=== PATIENT | female | born 1970 | race Caucasian/White ===

== ENCOUNTER 2017-11-07 11:33 | Inpatient (IN) | payer MEDICAID, OTHER ==
[2017-11-07] MEDS: SOD CHLORIDE 0.9% 500 ML IV (15:59)
[2017-11-07 16:24] LABS: WHITE BLOOD COUNT 7.4 10^3/ul (4.8-10.8)
[2017-11-07 16:24] LABS: ABNORMAL IP MESSAGE 1; HEMATOCRIT 21.9 % (37.0-47.0); MEAN CORPUSCULAR HEMOGLOBIN 18.5 pg (29.0-33.0); MEAN CORPUSCULAR HGB CONC 26.5 g/dl (32.0-37.0); MEAN CORPUSCULAR VOLUME 69.7 fl (82.0-101.0); MEAN PLATELET VOLUME 10.7 fl (7.4-10.4); NUCLEATED RED BLOOD CELLS% 0.4 /100WBC (0.0-0.0); PLATELET COUNT 389 10^3/UL (140-415); RED BLOOD COUNT 3.14 10^6/ul (4.20-5.40); RED CELL DISTRIBUTION WIDTH 18.9 % (11.5-14.5)
[2017-11-07 16:30] LABS: INR 0.96; PARTIAL THROMBOPLASTIN TIME 26.4 Sec (25.0-35.0); PROTIME 12.9 Sec (11.9-14.9)
[2017-11-07 16:36] LABS: ALANINE AMINOTRANSFERASE 18 IU/L (13-69); ALBUMIN 4.2 g/dl (3.3-4.9); ALBUMIN/GLOBULIN RATIO 1.05; ALKALINE PHOSPHATASE 75 IU/L (42-121); ANION GAP 17 (8-16); ASPARTATE AMINO TRANSFERASE 25 IU/L (15-46); BILIRUBIN,INDIRECT 0.2 mg/dl (0-1.1); BILIRUBIN,TOTAL 0.2 mg/dl (0.2-1.3); BLOOD UREA NITROGEN 11 mg/dl (7-20); CALCIUM 8.9 mg/dl (8.4-10.2); CARBON DIOXIDE 23 mmol/L (21-31); CHLORIDE 107 mmol/L (97-110); CREATININE 0.59 mg/dl (0.44-1.00); GLUCOSE 94 mg/dl (70-220); POTASSIUM 3.6 mmol/L (3.5-5.1); SODIUM 143 mmol/L (135-144); TOTAL PROTEIN 8.2 g/dl (6.1-8.1)
[2017-11-07 16:37] LABS: ADD MAN DIFF? YES; HEMOGLOBIN 5.8 g/dl (12.0-16.0); POSITIVE DIFF @See below
[2017-11-07 16:50] LABS: ADD UMIC YES; UR ASCORBIC ACID 40 mg/dL (NEGATIVE); UR BILIRUBIN (Dip) NEGATIVE (NEGATIVE); UR BLOOD (Dip) NEGATIVE (NEGATIVE); UR CLARITY SLIGHTLY CLOUDY (CLEAR); UR COLOR AMBER (YELLOW); UR GLUCOSE (Dip) NEGATIVE (NEGATIVE); UR KETONES (Dip) NEGATIVE (NEGATIVE); UR LEUKOCYTE ESTERASE (Dip) 1+ Leu/ul (NEGATIVE); UR MUCUS FEW /HPF (NONE SEEN); UR NITRITE (Dip) NEGATIVE (NEGATIVE); UR RBC 8 /HPF (0-5); UR SPECIFIC GRAVITY (Dip) 1.011 (1.003-1.030); UR TOTAL PROTEIN (Dip) NEGATIVE (NEGATIVE); UR UROBILINOGEN (Dip) NEGATIVE (NEGATIVE); UR WBC 9 /HPF (0-5)
[2017-11-07 17:07] LABS: ANISOCYTOSIS 3+ (0-0); ERYTHROBLAST% (NRBC) (M) 3 % (0-0); GIANT THROMBO% (M) 8 % (0-0); HYPOCHROMASIA 3+ (0-0); LYMPHOCYTES #M 2.1 10^3/ul (0.8-2.9); LYMPHOCYTES % (M) 29 % (15-51); MICROCYTOSIS 2+ (0-0); MONOCYTE #M 0.6 10^3/ul (0.3-0.9); MONOCYTES % (M) 9 % (0-11); PLATELET ESTIMATE NORMAL; POIKILOCYTOSIS 1+ (0-0); POLYCHROMASIA 3+ (0-0); SEGMENTED NEUTROPHILS (M) % 62 % (39-77); SMUDGE%M 3 % (0-0)
[2017-11-07] MEDS ORDERED: BISACODYL (EC) 5 MG TAB PO (18:00)
[2017-11-07] MEDS ORDERED: ACETAMINOPHEN 325 MG TAB PO (18:00)
[2017-11-07] MEDS ORDERED: MAGNESIUM HYDROXIDE 30ML CUP PO (18:00)
[2017-11-07] MEDS ORDERED: DOCUSATE SODIUM 100 MG CAP PO (18:00)
[2017-11-07] MEDS: NACL 0.9% 3 ML SYG IV (20:29)
[2017-11-07] MEDS: SOD CHLORIDE 0.9% 1,000 ML IV (20:29)
[2017-11-08 06:25] LABS: IMMEDIATE SPIN CROSSMATCH 1 3
[2017-11-08 10:57] LABS: ADD MAN DIFF? NO
[2017-11-08 11:02] LABS: WHITE BLOOD COUNT 6.5 10^3/ul (4.8-10.8)
[2017-11-08 11:02] LABS: BASOPHILS % 0.6 % (0.0-2.0); EOSINOPHILS # 0.1 10^3/ul (0.0-0.5); EOSINOPHILS % 1.1 % (0.0-7.0); HEMATOCRIT 30.8 % (37.0-47.0); HEMOGLOBIN 9.4 g/dl (12.0-16.0); LYMPHOCYTES # 1.4 10^3/ul (0.8-2.9); LYMPHOCYTES % 21.1 % (15.0-51.0); MEAN CORPUSCULAR HEMOGLOBIN 22.8 pg (29.0-33.0); MEAN CORPUSCULAR HGB CONC 30.5 g/dl (32.0-37.0); MEAN CORPUSCULAR VOLUME 74.6 fl (82.0-101.0); MEAN PLATELET VOLUME 10.2 fl (7.4-10.4); MONOCYTE # 0.7 10^3/ul (0.3-0.9); MONOCYTES % 11.2 % (0.0-11.0); NEUTROPHIL # 4.2 10^3/ul (1.6-7.5); NEUTROPHILS % 65.2 % (39.0-77.0); NUCLEATED RED BLOOD CELLS% 0.5 /100WBC (0.0-0.0); PLATELET COUNT 294 10^3/UL (140-415); RED BLOOD COUNT 4.13 10^6/ul (4.20-5.40); RED CELL DISTRIBUTION WIDTH 21.2 % (11.5-14.5)
[2017-11-08 11:27] LABS: ALANINE AMINOTRANSFERASE 22 IU/L (13-69); ALBUMIN 3.5 g/dl (3.3-4.9); ALBUMIN/GLOBULIN RATIO 1.02; ALKALINE PHOSPHATASE 60 IU/L (42-121); ANION GAP 13 (8-16); ASPARTATE AMINO TRANSFERASE 24 IU/L (15-46); BILIRUBIN,INDIRECT 0.9 mg/dl (0-1.1); BILIRUBIN,TOTAL 0.9 mg/dl (0.2-1.3); BLOOD UREA NITROGEN 9 mg/dl (7-20); CALCIUM 8.4 mg/dl (8.4-10.2); CARBON DIOXIDE 24 mmol/L (21-31); CHLORIDE 110 mmol/L (97-110); GLUCOSE 84 mg/dl (70-220); POTASSIUM 3.8 mmol/L (3.5-5.1); SODIUM 143 mmol/L (135-144); TOTAL PROTEIN 6.9 g/dl (6.1-8.1)
[2017-11-08] MEDS: SOD CHLORIDE 0.9% 1,000 ML IV (13:41)
[2017-11-08 14:04] LABS: HEMOGLOBIN 9.4 g/dl (12.0-16.0)
[2017-11-08] MEDS: CIPROFLOXACIN 200 MG/D5W IVPB 100 ML IVPB (17:47)
[2017-11-08 18:49] LABS: HEMATOCRIT 30.1 % (37.0-47.0); HEMOGLOBIN 9.2 g/dl (12.0-16.0)
[2017-11-08 22:23] LABS: HEMOGLOBIN 8.9 g/dl (12.0-16.0)
[2017-11-09 03:04] LABS: HEMATOCRIT 28.1 % (37.0-47.0); HEMOGLOBIN 8.4 g/dl (12.0-16.0)
[2017-11-09] MEDS: SOD CHLORIDE 0.9% 1,000 ML IV ×2 (05:39→08:52)
[2017-11-09 06:50] LABS: ADD MAN DIFF? NO
[2017-11-09 06:59] LABS: WHITE BLOOD COUNT 6.1 10^3/ul (4.8-10.8)
[2017-11-09 06:59] LABS: BASOPHIL # 0.1 10^3/ul (0.0-0.1); BASOPHILS % 0.8 % (0.0-2.0); EOSINOPHILS # 0.2 10^3/ul (0.0-0.5); EOSINOPHILS % 2.6 % (0.0-7.0); HEMATOCRIT 29.4 % (37.0-47.0); HEMOGLOBIN 8.7 g/dl (12.0-16.0); LYMPHOCYTES # 1.7 10^3/ul (0.8-2.9); LYMPHOCYTES % 28.1 % (15.0-51.0); MEAN CORPUSCULAR HEMOGLOBIN 21.9 pg (29.0-33.0); MEAN CORPUSCULAR HGB CONC 29.6 g/dl (32.0-37.0); MEAN CORPUSCULAR VOLUME 73.9 fl (82.0-101.0); MEAN PLATELET VOLUME 10.1 fl (7.4-10.4); MONOCYTE # 0.8 10^3/ul (0.3-0.9); MONOCYTES % 13.5 % (0.0-11.0); NEUTROPHIL # 3.3 10^3/ul (1.6-7.5); NEUTROPHILS % 54.5 % (39.0-77.0); PLATELET COUNT 268 10^3/UL (140-415); RED BLOOD COUNT 3.98 10^6/ul (4.20-5.40); RED CELL DISTRIBUTION WIDTH 21.5 % (11.5-14.5)
[2017-11-09 07:43] LABS: ANION GAP 11 (8-16); BLOOD UREA NITROGEN 11 mg/dl (7-20); CALCIUM 8.3 mg/dl (8.4-10.2); CARBON DIOXIDE 24 mmol/L (21-31); CHLORIDE 112 mmol/L (97-110); CREATININE 0.64 mg/dl (0.44-1.00); GLUCOSE 83 mg/dl (70-220); PHOSPHORUS 4.2 mg/dl (2.5-4.9); SODIUM 143 mmol/L (135-144)
[2017-11-09] MEDS: CIPROFLOXACIN 200 MG/D5W IVPB 100 ML IVPB ×2 (08:52→21:55)
[2017-11-09] MEDS: MEDROXYPROGESTERONE 10 MG TAB PO (16:41)
[2017-11-10 06:22] LABS: ADD MAN DIFF? NO
[2017-11-10 06:30] LABS: WHITE BLOOD COUNT 5.7 10^3/ul (4.8-10.8)
[2017-11-10 06:30] LABS: ABNORMAL IP MESSAGE 1; BASOPHILS % 0.5 % (0.0-2.0); EOSINOPHILS # 0.1 10^3/ul (0.0-0.5); EOSINOPHILS % 2.1 % (0.0-7.0); HEMATOCRIT 29.9 % (37.0-47.0); HEMOGLOBIN 8.9 g/dl (12.0-16.0); LYMPHOCYTES # 1.6 10^3/ul (0.8-2.9); LYMPHOCYTES % 27.6 % (15.0-51.0); MEAN CORPUSCULAR HGB CONC 29.8 g/dl (32.0-37.0); MEAN CORPUSCULAR VOLUME 73.8 fl (82.0-101.0); MEAN PLATELET VOLUME 11.2 fl (7.4-10.4); MONOCYTE # 0.7 10^3/ul (0.3-0.9); NEUTROPHIL # 3.3 10^3/ul (1.6-7.5); NEUTROPHILS % 57.4 % (39.0-77.0); PLATELET COUNT 292 10^3/UL (140-415); RED BLOOD COUNT 4.05 10^6/ul (4.20-5.40); RED CELL DISTRIBUTION WIDTH 22.1 % (11.5-14.5)
[2017-11-10 06:57] LABS: POSITIVE DIFF @See below
[2017-11-10] MEDS ORDERED: HYDROmorphONE 2 MG/ML SYG (07:00)
[2017-11-10] MEDS ORDERED: ONDANSETRON 4 MG INJ (07:00)
[2017-11-10] MEDS ORDERED: METOCLOPRAMIDE 10 MG INJ (07:00)
[2017-11-10 07:14] LABS: ANION GAP 13 (8-16); BLOOD UREA NITROGEN 9 mg/dl (7-20); CALCIUM 8.6 mg/dl (8.4-10.2); CARBON DIOXIDE 24 mmol/L (21-31); CHLORIDE 110 mmol/L (97-110); CREATININE 0.61 mg/dl (0.44-1.00); GLUCOSE 95 mg/dl (70-220); PHOSPHORUS 4.4 mg/dl (2.5-4.9); SODIUM 143 mmol/L (135-144)
[2017-11-10] MEDS: MEDROXYPROGESTERONE 10 MG TAB PO (09:00)
[2017-11-10] MEDS: CIPROFLOXACIN 200 MG/D5W IVPB 100 ML IVPB ×2 (09:08→20:25)
[2017-11-10] MEDS ORDERED: HYDROmorphONE 1 MG/5 ML IV SYRINGE IV ×3 (09:30)
[2017-11-10] MEDS ORDERED: IPRATROPIUM (NEB) 0.5 MG/2.5 ML AMP HHN (09:30)
[2017-11-10] MEDS ORDERED: MEPERIDINE 25 MG INJ IV (09:30)
[2017-11-10] MEDS ORDERED: DIPHENHYDRAMINE 50 MG INJ IV (09:30)
[2017-11-10] MEDS ORDERED: ONDANSETRON 4 MG INJ IV (09:30)
[2017-11-10] MEDS ORDERED: FENTAnyl 50 MCG/ML VIAL IV ×2 (09:30)
[2017-11-10] MEDS ORDERED: FENTAnyl 50 MCG/ML VIAL (13:26)
[2017-11-10] MEDS ORDERED: PROPOFOL 20 ML (13:27)
[2017-11-10] MEDS ORDERED: LIDOCAINE 2% (SDV) 5 ML INJ (13:27)
[2017-11-10] MEDS ORDERED: MIDAZOLAM 1 MG/ML 2 ML INJ (13:27)
[2017-11-10] MEDS ORDERED: DEXAMETHASONE 4 MG/ML 1 ML INJ (13:28)
[2017-11-10] MEDS ORDERED: CEFAZOLIN 1 GM INJ (15:39)
[2017-11-10] MEDS: ONDANSETRON 4 MG INJ IV (17:50)
[2017-11-11] MEDS: CIPROFLOXACIN 200 MG/D5W IVPB 100 ML IVPB (08:35)
[2017-11-11] MEDS: MEDROXYPROGESTERONE 10 MG TAB PO (08:39)
== END 2017-11-11 18:10 | disposition home or self-care (01) | DRG 742 ==
LOC: E/R 11:33 → 2NE 16:51
PROC: 0UB98ZZ Excision of Uterus, Via Natural or Artificial Opening Endoscopic (ICD-10-PCS; principal; 2017-11-10 14:30)
PROC: 0U5B8ZZ Destruction of Endometrium, Via Natural or Artificial Opening Endoscopic (ICD-10-PCS; 2017-11-10 14:30)
PROC: 30233N1 Transfusion of Nonautologous Red Blood Cells into Peripheral Vein, Percutaneous Approach (ICD-10-PCS; 2017-11-10 14:38)
DX: N92.0 Excessive and frequent menstruation with regular cycle (principal); N39.0 Urinary tract infection, site not specified; D25.0 Submucous leiomyoma of uterus; D64.9 Anemia, unspecified
CPT/HCPCS: 36415; 36430; 76830; 76856; 80048; 80053; 81001; 81025; 83735; 84100; 84702; 85014; 85018; 85025; 85610; 85730; 86644; 86850; 86900; 86901; 86920; 88305; 88331; 93005; 99285-25